=== PATIENT | female | born 1990 | race Caucasian/White ===

== ENCOUNTER 2023-06-11 15:45 | Outpatient (CLI) | payer BC, SELFPAY ==
[2023-06-12 13:55] LABS: Strep B DNA Probe Positive (Negative)
[2023-06-12 14:13] LABS: Strep B Susceptibility Needed? No
== END 2023-06-11 15:46 | disposition home or self-care (01) ==
LOC: NFLDREF 15:59
PROVIDERS: Visit Provider Registered Nurse
DX: Z34.93 Encounter for supervision of normal pregnancy, unspecified, third trimester (principal); Z3A.35 35 weeks gestation of pregnancy
CPT/HCPCS: 87081; 87653

== ENCOUNTER 2023-07-05 05:12 | Inpatient (IN) | payer BC, SELFPAY ==
[2023-07-05] VITALS (33 sets, daily range): BP systolic 95–129; BP diastolic 52–77; PULSE 69–103; RESP 14–18; TEMP 36.3–36.7; O2SAT 87–100; BMI 31.6
[2023-07-05] MEDS: LACTATED RINGERS 1000 ML 1,000 ML 900 ML IV ×2 (05:30→06:46)
[2023-07-05 05:56] LABS: Basophils Absolute Auto 0.04 K/uL (0.00-0.30); Basophils Percent Auto 0.4 % (0.0-3.0); Eosinophils Absolute Auto 0.09 K/uL (0.00-0.50); Eosinophils Percent Auto 0.9 % (0.0-7.0); Hematocrit 36.8 % (33.0-51.0); Hemoglobin* 12.1 gm/dL (12.0-16.0); Immature Granulocytes Abs Auto 0.03 K/uL (0.00-0.30); Immature Granulocytes Pct Auto 0.3 %; Lymphocytes Percent Auto 13.3 % (20-44); Mean Corpuscular HGB Conc 33 gm/dL (32-36); Mean Corpuscular Hemoglobin 30 pg (26-34); Mean Corpuscular Volume 90 fL (80-100); Monocytes Percent Auto 7.5 % (0.0-11.0); Neutrophils Percent Auto 77.6 % (42.0-72.0); Platelet Count* 220 K/uL (140-440); RDW Coefficient of Variation % 16.5 % (11.5-15.5); Red Blood Count 4.08 m/uL (4.00-5.20); White Blood Count* 9.98 K/uL (4.50-11.00)
[2023-07-05 05:59] LABS: Slide Review Reflex No
--- NOTE | 2023-07-05 07:06 | P.LDBA_ITS ---
Subjective History of Present Illness Narrative: Patient is being admitted to Labor and Delivery for scheduled delivery. She is a 33 year old at 39.0 weeks gestation. Her full history and physical was dictated by myself on 06/16/23. Please see this for details. Active movement. Denies Ctx, LOF, vaginal bleeding or abnormal vaginal discharge. Since our last visit, she's developed nasal congestion. Denies cough. Patient denies fever, chills, chest pain, SOB, n/v, headache, vision changes, RUQ pain, or dizziness. Specific Issues/Plans Transfer of obstetric care at 34 4/7 weeks gestation. GBS POSITIVE 1. History of section for arrest of dilation * Desires repeat section at 39 weeks gestation. Scheduling form submitted. -- scheduled w/ Dr Willis 07/04 2. Anemia. Hemoglobin 10.7 05/24/2023 * Taking oral iron supplement. labs: Blood type O positive, antibody screen negative, rubella immune, varicella immune, RPR nonreactive, hep B surface antigen negative, hepatitis-C negative, HIV negative, gonorrhea chlamydia screens negative, urine culture negative, 1 hour glucose screen 118, hemoglobin on 05/24/2019 for 10.7. Ultrasounds: 12/22/2022 11 1/7 weeks gestation, [facility] 07/12/2023. Inconsistent with last menstrual period dating. 02/26/2023 anatomy scan at 20 3/7 weeks gestation, no anomalies. Tdap: 05/10/2023 per records from previous clinic H&P: On 06/16/[address] Willis OB - Problem Based A/P Additional Plan (1) History of section complicating : Status: Acute (2) : Status: Acute Plan -CS Consent The patient was consented for section and blood. She understands that the four main categories of risk include pain, bleeding, infection, and damage to surrounding structures. Regarding infection, she understands that we will be delivering appropriate antibiotics, however that the risk of infection following section still is approximately 5%. She understands that though the risk is very low that there is always a risk of damage to the bladder, uterus, ovaries, fallopian tubes, bowels, ureters, or even the fetus. She understands that most injuries can be addressed at the time of surgery, however, such an injury may require additional surgeries to fix (including hysterectomy). Lastly, she understands that a section carries a risk of bleeding, and that while this bleeding can be addressed with multiple medical and surgical modalities, that there is the possibility of needing a blood transfusion. She reports she would accept a blood transfusion.Lastly, she understands that a section does increase risks for future pregnancies and deliveries including, but not limited to, the risk of uterine rupture or placenta accreta. All questions answered to patient's satisfaction. - Hgb/plt: 12.1/220 - Plan: will proceed with scheduled repeat delivery at 39.0d OB Exam Physical Exam Vital signs: Temp Pulse BP Pulse Ox 98.1 F 103 H 115/56 L 98 07/05/23 05:21 07/05/23 05:42 07/05/23 05:42 07/05/23 07:17 Narrative: Physical exam: General: No acute distress Psych: Alert and oriented x3, full affect HEENT: Normocephalic, atraumatic Lungs: Unlabored breathing Neuro: No focal deficit. Mentating appropriately Abdomen: Gravid. Soft, nontender. No rebound or guarding. Pelvic exam: Deferred
--- NOTE | 2023-07-05 07:23 | P.OBPRC_ITS ---
Procedure Time Seen by Provider: 07:00 Date of procedure: 07/05/23 Post-op diagnosis: same Procedure Done: Global Will [facility] bill your pro fee for this procedure?: Yes Blood Loss Measurement Type: QBL (378) Bakri Used: No Urine Output (mL): 150 Anesthesia Type: Spinal Procedure Description: DELIVERY BY SECTION Date of Service: 07/05/23 Delivery time: 0750 Summary: Admitted for scheduled repeat delivery at 39.0, Repeat Lower uterine transverse section, Pfannenstiel, Closed with sutures, QBL 378 cc, No complications, Findings: Normal uterus, bilateral ovaries and tubes. Minimal filmy adhesions intraabdominally. 9/9 Weight 3950 g. Primary Indication: Previous delivery x 1 Declined TOLAC Procedures: Primary Lower uterine transverse section Specimens Removed: Placenta Surgeon: Raven Willis MD Validation Consultant: AMBER Flowers Anesthesia: Spinal and TAP Report: Prophylactic antibiotic, 2 g of Ancef was given before patient was taken to OR. After arrival to the operating room patient was placed in the supine position with left lateral tilt after administration of spinal anesthesia. Laparotomy A pfannenstiel incision was made through the anterior abdominal wall with #10 scalpel approximately 2 cm above the pubic symphysis. The incision was extended sharply with the #10 scalpel through the subcutaneous tissue to the level of fascia. The fascia was entered sharply with a #10 scalpel (Pfannenstiel) in the midline and extended in semi-elliptical fashion with Amaya scissor. The underlying muscles were dissected off the overlying fascia by grasping the superior aspect of fascia with two una clamps and blunt dissection was used along the midline. The fascia was further from rectus muscle with Amaya scissor and/or cautery. In similar fashion, the lower aspect of fascia was also grasped with two Una clamps and both blunt and sharp dissection was used to separate fascia from rectus muscle. The rectus muscles were in the midline bluntly with digits. The peritoneum was then entered sharply kellysocorro and Metzenbaum. The peritoneal incision was then extended superiorly and inferiorly under direct visualization with care being taken to avoid bladder and bowel. Minimal filmy adhesions - taken down with electrocautery. The peritoneal incision was enlarged bluntly by lateral traction from the surgeon's and quality assistant's hand. Moisés retractor was inserted into the abdomen. Delivery A bladder flap was developed by grasping with [place] forcep and enter with Metzenbaun scissor. Then sharp and blunt dissection with Metzenbaum scissor and fingers were performed. A low transverse hysterotomy was made then with #10 scalpel and extended laterally and cephalad with fingers in a low transverse fashion with Manu Robertson technique with care being taken to avoid injury to the fetus. The amniotic cavity (membrane) was then entered with spontaneous rupture of membrane, and the amniotic fluid was noted to be clear, fetus was delivered cephalic. With delivery of the baby, no extension was noted. Placenta was delivered spontaneously with steady traction on cord and manual separation of placenta from uterine wall. Closure Uterine cavity was cleaned after placental delivery with lap sponge x 2. The hysterotomy was closed in two layers with stitches using 0 vicryl with continuous locking stitches and 0 monocryl in a continuous non locking manner. One figure of 8 placed in the middle hysterotomy for hemostasis. Hemostasis was achieved as needed with electrocautery. The ovaries/tubes/uterine surface were evaluated. They were found to be normal. Moisés retractor removed and hemostasis was confirmed again. Fascia was closed with running stitches using 0 PDS. Subcutaneous layer was irrigated. Hemostasis was checked for and found to be adequate. The subcutaneous layer was closed with running Vicryl sutures. The skin was closed with monocryl subcuticular sutures . The incision was cleaned, Exofin applied, and Mepilex dressing placed. The procedure considered terminate at this time. Intraoperative Complications: None QBL: 378 cc Uterotonics: 40 u of pitocin. 1g of TXA Disposition: The patient tolerated the procedure well. She was recovered in Obstetric PACU for close monitoring in stable condition, with a contracted uterus and normal transvaginal bleeding. The was sent to mother's bedside. The placenta was not sent to pathology. Debrief with OR team performed and specimen reviewed at the conclusion of the procedure.
[2023-07-05] MEDS: CEFAZOLIN 2 GM INJ IVP (07:35)
[2023-07-05] MEDS: ONDANSETRON 2 MG/ML inj 4 MG IV (08:00)
--- NOTE | 2023-07-05 08:03 | W.ANESCHARGE ---
Anesthesia Charges Start Date/Time Anesthesia Start Date: 07/05/23 Anesthesia Start Time: 07:29 Stop Date/Time Anesthesia Stop Date: 07/05/23 Anesthesia Stop Time: 08:50
[2023-07-05] MEDS: KETOROLAC 15 MG/ML inj IVP (08:25)
[2023-07-05] MEDS: LACTATED RINGERS 1000 ML 1,000 ML 125 ML IV (08:38)
--- NOTE | 2023-07-05 08:57 | P.NB_ITS ---
Nerve Block Nerve Block Time Seen by Provider: 08:43 Date Seen: 07/05/23 Type of block requested by surgeon for post-operative analgesia: TAP Side: bilateral Time out performed: Yes Verification of patient name: Yes Verification of date of : Yes Site marking: site marked Name of person performing procedure: Jean Continuous monitoring Was continuous monitoring of O2 sat, B/P, director of cardiac rehabilitation, recorded every 15 minutes?: Yes Procedure Checklist: sterile prep, needles and gloves Ultrasound guided. Images saved: Yes Medications given in 5ml increments after negative aspiration: Marcaine %: 0.25 mL: 30 Needle gauge: 20 and Exparel mL: 10 Patient tolerated procedure well: Yes Additional comments: Needle noted between internal oblique and transversus abdominus. Local spread visualized Block Charges Block Charge (with Pro Fee): TAP Bilateral Use of Ultrasound Machine for Block: Yes- US Guidance/pain block
--- NOTE | 2023-07-05 08:58 | W.ANESCHARGE ---
Anesthesia Charges Start Date/Time Anesthesia Start Date: 07/05/23 Anesthesia Start Time: 07:29 Stop Date/Time Anesthesia Stop Date: 07/05/23 Anesthesia Stop Time: 08:50
[2023-07-05] MEDS: KETOROLAC 30 MG/ML inj IVP ×2 (14:36→20:34)
[2023-07-05] MEDS: DOCUSATE SODIUM 100 MG CAPSULE PO (16:43)
[2023-07-06 01:46] VITALS: BP 135/75; PULSE 77; RESP 16; RESP 18; TEMP 36.6; O2SAT 99
[2023-07-06] MEDS: KETOROLAC 30 MG/ML inj IVP ×3 (02:09→15:00)
[2023-07-06 04:53] VITALS: RESP 16; O2SAT 98
[2023-07-06] MEDS: SODIUM CHLORIDE NASAL SPRAY 1 SPRAY NOSTRIL-B (05:10)
[2023-07-06 08:59] VITALS: BP 106/42; PULSE 83; RESP 16; TEMP 36.6; O2SAT 99
[2023-07-06] MEDS: DOCUSATE SODIUM 100 MG CAPSULE PO (09:10)
--- NOTE | 2023-07-06 11:06 | P.DS_ITS ---
Documented by User: Fouzia Maya 07/06/23 15:17 DS: Providers Provider Time Seen by Provider: 11:06 Date Seen: 07/06/23 Date of admission: 07/05/23 05:12 Primary care physician: Not a Local Provider Admitting Clinician: Raven Willis MD Attending Physician on discharge: Raven Willis MD Date of Discharge: 07/06/23 DS: Diagnosis Discharge Diagnosis (1) examination following delivery: Status: Acute (2) care and examination of lactating mother: Status: Acute Exam Narrative: Exam Narrative: GENERAL APPEARANCE:? normal affect, alert, no distress MOOD:? appropriate CHEST:? clear to auscultation HEART:? regular rate and rhythm ABDOMEN:? soft, non-tender the uterine fundus is firm. Midline and is appropriate for the stage of recovery. LOCHIA: small EXTREMITIES:? normal and no edema INCISION: Healing well, no surrounding erythema, drainage Const: Vital Signs, click to edit/add: Vital Signs - 24 hr 07/05/23 11:53 07/05/23 12:53 07/05/23 13:53 Temperature Pulse Rate [Pulse Oximeter] Respiratory Rate 16 16 16 Blood Pressure [Ri ght Arm] Pulse Oximetry Oxygen Delivery Me thod 07/05/23 14:53 07/05/23 15:53 07/05/23 16:53 Temperature Pulse Rate [Pulse Oximeter] Respiratory Rate 16 16 16 Blood Pressure [Ri ght Arm] Pulse Oximetry Oxygen Delivery Me thod 07/05/23 17:53 07/05/23 17:57 07/05/23 18:53 Temperature 98.0 F Pulse Rate [Pulse Oximeter] 84 Respiratory Rate 16 16 16 Blood Pressure [Ri ght Arm] 126/74 Pulse Oximetry Oxygen Delivery Me thod Room Air 07/05/23 19:53 07/05/23 20:37 07/05/23 20:37 Temperature 97.4 F L Pulse Rate [Pulse Oximeter] 84 Respiratory Rate 16 18 18 Blood Pressure [Ri ght Arm] 129/64 Pulse Oximetry 98 Oxygen Delivery Me thod Room Air 07/06/23 01:46 07/06/23 01:46 07/06/23 04:53 Temperature 97.8 F Pulse Rate [Pulse Oximeter] 77 Respiratory Rate 16 18 16 Blood Pressure [Ri ght Arm] 135/75 Pulse Oximetry 99 Oxygen Delivery Me thod Room Air 07/06/23 08:59 Temperature 97.9 F Pulse Rate [Pulse Oximeter] 83 Respiratory Rate 16 Blood Pressure [Ri ght Arm] 106/42 L Pulse Oximetry 99 Oxygen Delivery Me thod Room Air Common normals: no apparent distress OB - DS: Summary Hospital Course Hospital Course: Azalia is a 33 y.o. who was admitted to L & D for repeat . ?She had an uncomplicated .?She is post-op day 1 and has expressed interest in discharging home early. Risk of discharging home before 48-72 hours Post C- section was reviewed. The patient reports feeling well today. She reports her pain is well controlled with current medications. ?She has no new complaints. ?She is breast feeding and reports no concerns.? Vitals have been stable.? She has remained afebrile.? Has a good appetite, is tolerating a general diet. ?She is voiding without difficulty.? She is passing gas and has not had a bowel movement.?Incision is open to air. Clean dry and intact. She is ambulating and denies any dizziness.? Has Small amount of rubra lochia. ?She is planning NFP for prevention. Pt agreed to stay till later this evening, after 32 hours . Peripartum Data Infant delivery method: Repeat Section Procedures: Procedures Operation Date: 07/05/23 07:15 Actual Procedure Side Surgeon p Repeat Section Not Applicable Ravenmilan Willis MD complications: none [place] Gender: Female Infant Discharge Plan: Home Status at Discharge Functional status at discharge: independent ambulation Overall status at discharge: patient is progressing back to baseline Time Spent with Patient Time attestation: Total time spent providing and/or coordinating discharge services: Discharge Plan Discharge Disposition: Home, Self-Care Date of Admission: 07/05/23 05:12 Attending Provider on Discharge: Rachel Valerio Primary Care Provider: Provider,Not a Local Condition: Stable Anticipated Discharge Date/Time: 07/06/23 17:00 Discharge Medications: New docusate sodium 100 mg Capsule 100 mg PO DAILY Qty: 90 0RF ibuprofen 600 mg Tablet 600 mg PO Q6H PRN (Reason: Pain) Qty: 60 0RF oxycodone 5 mg Tablet 5 - 10 mg PO Q4H PRN (Reason: Pain) Qty: 15 0RF acetaminophen 500 mg Tablet 1,000 mg PO Q6H PRN (Reason: Pain) Qty: 0 0RF Continued ferrous sulfate [FeroSul] 325 mg (65 mg iron) tablet 325 mg PO DAILY PNV-DHA 27 mg iron-1 mg -300 mg capsule PO Discharge Orders: Discharge Order (Routine); Ordered 07/06/23 Ordered By: Rachel Valerio Patient Education: OB Over the Counter Medication Information, OB /Breast Feeding Additional Instructions: Discharge instructions were reviewed with the patient including signs and symptoms of infection and home going medications Lifting Restrictions: 20 pounds for 6 weeks No not submerge incision under water X 2 weeks? Nothing vaginally for 6 weeks: no tampons or intercourse Do not drive while taking narcotic pain medication(s) Off Work or School for 8 weeks 2-week visit: incision check, discuss feeding concerns, review control options and screen for anxiety/depression. 6-week visit for an annual exam. consultation services are available to all mothers and babies for the first year after delivery.? To make an appointment, please call [phone]. Activity Level: Activity as Tolerated Discharge Diet: Regular Follow Up Appointments: [facility] [Provider Group] Forms: [facility] Info Instructions Documented by User: Rachel Valerio CNM 07/06/23 16:04 DS: Providers Provider Attending Physician on discharge: Rachel Valerio APRN, CNM DS: Diagnosis Discharge Diagnosis (1) examination following delivery: Status: Acute (2) care and examination of lactating mother: Status: Acute Exam Const: Documenting provider has reviewed patient's vital signs: yes OB - DS: Summary Hospital Course Hospital Course: Azalia is a 33 y.o. who was admitted to L & D for repeat . ?She had an uncomplicated .?She is post-op day 1 and has expressed interest in discharging home early. Risk of discharging home before 48-72 hours Post C- section was reviewed. The patient reports feeling well today. She reports her pain is well controlled with current medications. ?She has no new complaints. ?She is breast feeding and reports no concerns.? Vitals have been stable.? She has remained afebrile.? Has a good appetite, is tolerating a general diet. ?She is voiding without difficulty.? She is passing gas and has not had a bowel movement.?Incision is open to air. Clean dry and intact. She is ambulating and denies any dizziness.? Has Small amount of rubra lochia. ?She is planning NFP for prevention. Pt agreed to stay till later this evening, after 32 hours . I,?Rachel Valerio, MEL, REGULO, was present for visit and have reviewed and agree with documentation by the Certified Nurse Midwifery Student. Discharge Plan Discharge Disposition: Home, Self-Care Date of Admission: 07/05/23 05:12 Attending Provider on Discharge: Rachel Valerio Primary Care Provider: Provider,Not a Local Condition: Stable Anticipated Discharge Date/Time: 07/06/23 17:00 Discharge Medications: New docusate sodium 100 mg Capsule 100 mg PO DAILY Qty: 90 0RF ibuprofen 600 mg Tablet 600 mg PO Q6H PRN (Reason: Pain) Qty: 60 0RF oxycodone 5 mg Tablet 5 - 10 mg PO Q4H PRN (Reason: Pain) Qty: 15 0RF acetaminophen 500 mg Tablet 1,000 mg PO Q6H PRN (Reason: Pain) Qty: 0 0RF Continued ferrous sulfate [FeroSul] 325 mg (65 mg iron) tablet 325 mg PO DAILY PNV-DHA 27 mg iron-1 mg -300 mg capsule PO Discharge Orders: Discharge Order (Routine); Ordered 07/06/23 Ordered By: Rachel Valerio Patient Education: OB Over the Counter Medication Information, OB /Breast Feeding Additional Instructions: Discharge instructions were reviewed with the patient including signs and symptoms of infection and home going medications Lifting Restrictions: 20 pounds for 6 weeks No not submerge incision under water X 2 weeks? Nothing vaginally for 6 weeks: no tampons or intercourse Do not drive while taking narcotic pain medication(s) Off Work or School for 8 weeks 2-week visit: incision check, discuss feeding concerns, review control options and screen for anxiety/depression. 6-week visit for an annual exam. consultation services are available to all mothers and babies for the first year after delivery.? To make an appointment, please call [phone]. Activity Level: Activity as Tolerated Discharge Diet: Regular Follow Up Appointments: [facility] [Provider Group] Forms: [employer] Info Instructions
[2023-07-06 16:34] LABS: Rapid Plasma Reagin (RPR) Non Reactive (Non Reactive)
== END 2023-07-06 16:39 | disposition home or self-care (01) | DRG 540 ==
PROVIDERS: Admitting Provider Obstetrics & Gynecology; Visit Provider Obstetrics & Gynecology
PROC: 10D00Z1 Extraction of Products of Conception, Low, Open Approach (ICD-10-PCS; CPT 59514; principal; 2023-07-05 07:15)
DX: O34.211 Maternal care for low transverse scar from previous cesarean delivery (principal); O99.02 Anemia complicating childbirth; D64.9 Anemia, unspecified; O99.824 Streptococcus B carrier state complicating childbirth; G89.18 Other acute postprocedural pain; Z3A.39 39 weeks gestation of pregnancy; Z37.0 Single live birth
CPT/HCPCS: 01961; 36415; 64488; 76942; 85018; 85025; 86592; 86850; 86900; 86901; A9270; C9290; J0665; J0690; J1885; J2274; J2371; J2405; J2590; J7120